=== PATIENT | male | born 1950 | race Caucasian/White ===

== ENCOUNTER 2017-04-13 13:55 | Outpatient (CLI) | payer OTHER ==
[~2017-04-13 13:55] MED LIST: BENICAR20 MG PO; GLUMETZA1000 MG; PLAVIX75 MG PO; [UNRECOGNIZED DRUG - OTHER] PO
== END 2017-04-13 14:07 | disposition home or self-care (01) ==
LOC: RAD 501 13:55
DX: Z00.00 Encounter for general adult medical examination without abnormal findings (principal)

== ENCOUNTER 2017-04-14 07:33 | Outpatient (CLI) | payer OTHER | END 2017-04-14 14:10 | disposition home or self-care (01) | LOC: NUCLEAR 07:33 | DX: Z00.00 Encounter for general adult medical examination without abnormal findings (principal); R94.31 Abnormal electrocardiogram [ECG] [EKG] ==

== ENCOUNTER 2020-01-28 08:24 | Outpatient (CLI) | payer OTHER | END 2020-01-28 08:33 | disposition home or self-care (01) | LOC: RAD 08:24 | PROVIDERS: ATTEND Surgery Surgery of the Hand | DX: M77.31 Calcaneal spur, right foot (principal); R05 Cough ==

== ENCOUNTER 2020-02-15 10:57 | Outpatient (CLI) | payer OTHER | END 2020-02-15 22:22 | disposition home or self-care (01) | LOC: PPH VACUNA 10:57 | PROVIDERS: ATTEND Emergency Medicine Pediatric Emergency Medicine | DX: Z23 Encounter for immunization (principal) ==

== ENCOUNTER 2020-10-12 08:00 | Outpatient (CLI) | payer OTHER | END 2020-10-12 08:30 | disposition home or self-care (01) | LOC: PPH VACUNA 08:00 | DX: Z23 Encounter for immunization (principal) ==

== ENCOUNTER 2020-12-28 10:31 | Outpatient (CLI) | payer OTHER | END 2020-12-28 10:39 | disposition home or self-care (01) | LOC: RAD 10:31 | PROVIDERS: ATTEND Surgery Surgery of the Hand | DX: J44.1 Chronic obstructive pulmonary disease with (acute) exacerbation (principal) ==

== ENCOUNTER 2021-05-17 08:00 | Outpatient (CLI) | payer OTHER | END 2021-05-17 08:30 | disposition home or self-care (01) | LOC: PPH VACUNA 08:00 | PROVIDERS: ATTEND Emergency Medicine Pediatric Emergency Medicine | DX: Z23 Encounter for immunization (principal) ==

== ENCOUNTER 2022-12-31 10:13 | Outpatient (CLI) | payer OTHER | END 2022-12-31 10:23 | disposition home or self-care (01) | LOC: RAD 10:13 | DX: Z01.811 Encounter for preprocedural respiratory examination (principal) ==